=== PATIENT | female | born 1940 | race Asian ===

== ENCOUNTER → 2016-07-03 | Outpatient (CLI) | payer MEDICARE ==
--- NOTE | 2016-07-03 15:59 | Diagnostic Imaging Report ---
Clinical Indication: Abdominal pain Technique: Patient given oral contrast. IV administration nonionic contrast. Initially obtained through the abdomen and pelvis. Multiplanar reconstructions were generated. Total dose length product 1504 mGycm. CTDIvol(s) 12, 84, 13, 15, 12 mGy Comparison: 11/14/2010 Findings: Again demonstrated is a 3.4 cm cyst within segment 5 of the liver. This demonstrates complete fluid attenuation, and no enhancement. It is unchanged from the previous study. A small area of low attenuation adjacent to the fissure for the ligamentum teres, consistent with focal fat, also evident previously. No other focal hepatic abnormality is demonstrated. The gallbladder is surgically absent. The bile ducts are nondilated. The pancreas demonstrates a few subcentimeter low-attenuation lesion within the pancreatic head which are unchanged from the previous study. The spleen, adrenals are unremarkable. The kidneys demonstrate subcentimeter low-attenuation lesions bilaterally, which are too small to characterize but most likely represent benign simple cysts. One of these in the left upper pole was evident previously. The others are more clearly evident currently due to the use of IV contrast. In the left interpolar region, there is a 1 cm lesion which is clearly cystic. No retroperitoneal or mesenteric mass or adenopathy. No pelvic mass or adenopathy. Uterus is absent, consistent with prior surgery. The appendix is normal. There is no evidence of diverticulosis or diverticulitis. No small bowel distention or small bowel wall thickening. No free or loculated intraperitoneal air or fluid is evident. The included lung bases are clear. The bones are unremarkable except for mild degenerative spondylosis changes. When compared to the prior exam, previously demonstrated right renal swelling perirenal fat stranding are no longer evident Impression: No acute process Stable, since 2010, 3.4 cm simple cyst within the right hepatic lobe Stable subcentimeter pancreatic head low-attenuation lesions, presumed benign Bilateral subcentimeter renal low-attenuation lesions, too small to characterize, most likely benign simple cortical cysts. No further followup necessary Incidental findings as noted, in luteum mild degenerative spondylosis, evidence of prior hysterectomy, evidence of prior cholecystectomy The CT scanner at [facility] is accredited by the [employer] and the scans are performed using protocols designed to limit radiation exposure to as low as reasonably achievable to attain images of sufficient resolution adequate for diagnostic evaluation.
--- NOTE | 2016-07-04 12:57 | Diagnostic Imaging Report ---
Indication: SCREEN Technique: Bilateral Craniocaudal and mediolateral oblique views were obtained. Comparison: 05/05/2010 12/12/2006, 11/28/2006 Findings: The breasts demonstrate scattered fibroglandular densities. No parenchymal asymmetry nor architectural distortion. There are benign calcifications bilaterally, unchanged. There is a biopsy marker clip in the left breast. No dominant masses nor suspicious clustered microcalcifications. No skin thickening nor nipple retraction. No axillary adenopathy. No significant interim change. Impression: No mammographic evidence of malignancy. Routine annual rescreening recommended. BI-RADS category 2-benign. Breast density BI-RADS type B.
== END | disposition home or self-care (01) ==
LOC: CAT 07:48
DX: Z12.31 Encounter for screening mammogram for malignant neoplasm of breast (principal); R10.9 Unspecified abdominal pain; K76.89 Other specified diseases of liver; Z90.710 Acquired absence of both cervix and uterus; Z90.49 Acquired absence of other specified parts of digestive tract; M47.9 Spondylosis, unspecified
CPT/HCPCS: 74177; 77067; Q9967

== ENCOUNTER → 2018-06-12 | Outpatient (CLI) | payer MEDICARE ==
--- NOTE | 2018-06-12 14:17 | Diagnostic Imaging Report ---
Indication: Cough Technique: 2 views of the chest Comparison: 11/14/2010 Findings: Lungs and pleural spaces are clear. The heart size is normal. The bones are unremarkable. Cholecystectomy clips again demonstrated. No significant interim change. Impression: Negative
== END | disposition home or self-care (01) ==
LOC: RAD 12:24
DX: R05 Cough (principal); Z90.49 Acquired absence of other specified parts of digestive tract
CPT/HCPCS: 71046